=== PATIENT | female | born 1930 | race Caucasian/White ===

== ENCOUNTER 2017-06-02 22:11 | Inpatient (IN) | payer OTHER, BC ==
[~2017-06-02] VITALS: Ht 167.6 cm; Wt 74.1 kg
[~2017-06-02 22:11] MED LIST: ADVIL200 M1 PO; ALEVE220 M1 PO; ALEVE220 M2 PO; AMIODARONE HCL200 MG PO; ASPERCREME L177.4 ML TP; ASPIR 8181 M1 PO; Aspirin PO; CALCIUM + D TA1 EACH PO; CALCIUM 500 +1 EAC2 PO; CALCIUM 600 +1 EAC6 PO; CORDARONE200 MG PO; Cordarone, Pacerone PO; DICYCLOMINE HCL20 MG PO; ECOTRIN325 MG PO; ELIQUIS2.5 MG PO; FISH OIL CONC1 EACH PO; GLUCOSAMINE H1500 MG PO; IBUPROFEN PM C1 EACH PO; IRON325 M1 PO; JOINT FLEX PO; LIDODERM 5% P1 PATCH TD; LISINOPRIL10 MG PO; MACUVITE EYE C1 EACH PO; NORCO 5/3251 TABLET PO; OMEPRAZOLE40 M1 PO; PENNSAID112 GM TP; PRESERVISION T1 EACH PO; PROLIA60 MG/1 ML SC; SENNA8.6 MG PO; SPIRIVA1 INHALATI IH; TAZTIA XT180 M1 PO; TRAMADOL HCL50 MG PO; TYLENOL EXTRA500 MG PO; TYLENOL PM1 CAPLET PO; VANCOCIN HCL125 MG PO; VITAMIN D31000 UNIT PO
[2017-06-03 12:38] VITALS: BP 191/89
[2017-06-03 12:42] LABS: INTER. NORMALIZED RATIO 1.1
[2017-06-03 21:51] VITALS: BP 18/79
[2017-06-03 23:38] VITALS: BP 146/69
[2017-06-04 03:45] VITALS: BP 161/72
[2017-06-04 05:19] LABS: HEMATOCRIT 40.7 % (36.0-46.0); MCV 94.9 FL (83-99)
[2017-06-04 05:39] LABS: ANION GAP 11 MEQ/L (2-14); CHLORIDE 103 MEQ/L (99-109); GFR ESTIMATE (CALCULATED) > 59 mL/min/; GLUCOSE 174 mg/dL (70-99); POTASSIUM 4.5 MEQ/L (3.7-5.4); SAMPLE HEMOLYSIS CHECK 0; SAMPLE ICTERIC CHECK 0; SAMPLE LIPEMIA CHECK 0; SODIUM 139 MEQ/L (136-147); UREA NITROGEN (BUN) 16 mg/dL (9-23)
[2017-06-04 08:02] VITALS: BP 162/74
[2017-06-04 11:54] VITALS: BP 138/65
[2017-06-04 15:43] VITALS: BP 146/65
[2017-06-04 23:19] VITALS: BP 142/76
[2017-06-05 06:13] LABS: HEMATOCRIT 36.8 % (36.0-46.0); MCV 97.9 FL (83-99)
[2017-06-05 08:17] VITALS: BP 157/69
[2017-06-05] MEDS ORDERED: ELIQUIS2.5 MG PO (08:59)
[2017-06-05] MEDS ORDERED: SENNA PLUS TAB1 EACH PO (08:59)
[2017-06-05] MEDS ORDERED: HYDROCODON-ACE1 EAC7 PO (08:59)
[2017-06-06] MEDS ORDERED: COLACE100 MG PO (15:57)
== END 2017-06-05 14:52 | disposition home or self-care (01) | DRG 470 ==
LOC: ENRESERV 22:11 → 3EAST 06-03 11:37 → 2SOUTH 06-03 11:37 → ENRESERV 06-03 17:19 → 3EAST 06-03 20:14
PROVIDERS: Orthopaedic Surgery
PROC: 0SRC0J9 Replacement of Right Knee Joint with Synthetic Substitute, Cemented, Open Approach (ICD-10-PCS; principal; 2017-06-03)
DX: M17.11 Unilateral primary osteoarthritis, right knee (principal); E87.6 Hypokalemia; I25.10 Atherosclerotic heart disease of native coronary artery without angina pectoris; I10 Essential (primary) hypertension; I48.0 Paroxysmal atrial fibrillation; M81.0 Age-related osteoporosis without current pathological fracture; Z79.01 Long term (current) use of anticoagulants; I25.2 Old myocardial infarction; Z85.3 Personal history of malignant neoplasm of breast; Z88.1 Allergy status to other antibiotic agents; Z85.43 Personal history of malignant neoplasm of ovary; Z88.0 Allergy status to penicillin; Z90.49 Acquired absence of other specified parts of digestive tract; Z90.710 Acquired absence of both cervix and uterus; Z90.11 Acquired absence of right breast and nipple; Z82.49 Family history of ischemic heart disease and other diseases of the circulatory system; Z80.9 Family history of malignant neoplasm, unspecified
CPT/HCPCS: 80048; 85014; 85018; 85610; 85730; 97530 GO; C1713; J0131; J0360; J0690; J1100; J1170; J1885; J2250; J2405; J2795; J3010; J7050

== ENCOUNTER 2017-06-06 13:59 | Observation (INO) | payer OTHER, BC ==
[~2017-06-06] VITALS: Ht 167.6 cm; Wt 71.8 kg
[~2017-06-06 13:59] MED LIST changes: +HYDROCODON-ACE1 EAC7 PO; +SENNA PLUS TAB1 EACH PO
[2017-06-06 15:12] LABS: EOSINOPHIL (%) 0.2 % (0-5); HEMATOCRIT 33.2 % (36.0-46.0); IMMATURE GRANULOCYTE (%) 0.4 % (0.0-0.7); IMMATURE GRANULOCYTE COUNT 0.1 K/uL; INSTRUMENT ABS NEUTROPHIL CT 10.3 K/uL; LYMPHOCYTE COUNT 0.4 K/uL (1.0-2.8); MCHC 31.9 G/DL (30.0-36.0); MCV 97.1 FL (83-99); MEAN PLAT.VOLUME 9.7 uM^3 (9.5-12.4); MONOCYTE (%) 13.1 % (3-12); MONOCYTE COUNT 1.6 K/uL (0-0.8); NEUTROPHIL (%) 83.1 % (45-76); NEUTROPHIL COUNT 10.3 K/uL (1.8-6.4); PLATELET COUNT 199 K/uL (156-360); RBC DIS.WIDTH-CV 13.4 % (11.8-14.6); RBC DIS.WIDTH-SD 48.2 % (39-53); WHITE BLOOD COUNT 12.3 K/uL (4.1-10.2)
[2017-06-06 15:15] LABS: RED BLOOD COUNT 3.42 M/uL (3.80-5.20)
[2017-06-06 15:21] LABS: CHLORIDE 110 mEq/L (99-109); POTASSIUM 3.6 mEq/L (3.7-5.4); SODIUM 142 mEq/L (136-147)
[2017-06-06 15:23] LABS: INTER. NORMALIZED RATIO 1.3; PROTHROMBIN TIME 14.7 SEC (10.2-12.9)
[2017-06-06 15:25] LABS: ANION GAP 13 MEQ/L (2-14)
[2017-06-06 15:26] LABS: GLUCOSE 116 mg/dL (70-99); PTT 24.5 SEC (25-37)
[2017-06-06 15:27] LABS: GFR ESTIMATE (CALCULATED) > 59 mL/min/
[2017-06-06 15:28] LABS: UREA NITROGEN (BUN) 21 mg/dL (9-23)
[2017-06-06 15:35] LABS: TROP-I INTERPRETATION NEGATIVE; TROPONIN-I 0.01 ng/mL (0.0-0.30)
[2017-06-06] MEDS ORDERED: COLACE100 MG PO (15:57)
[2017-06-06 17:19] VITALS: BP 186/80
[2017-06-06 20:50] LABS: EOSINOPHIL (%) 0.2 % (0-5); HEMATOCRIT 32.2 % (36.0-46.0); IMMATURE GRANULOCYTE (%) 0.3 % (0.0-0.7); INSTRUMENT ABS NEUTROPHIL CT 9.7 K/uL; LYMPHOCYTE COUNT 0.5 K/uL (1.0-2.8); MCH 32.8 PG (29.0-34.0); MCHC 33.9 G/DL (30.0-36.0); MEAN PLAT.VOLUME 10.1 uM^3 (9.5-12.4); MONOCYTE (%) 12.9 % (3-12); MONOCYTE COUNT 1.5 K/uL (0-0.8); NEUTROPHIL (%) 82.3 % (45-76); NEUTROPHIL COUNT 9.7 K/uL (1.8-6.4); PLATELET COUNT 206 K/uL (156-360); RBC DIS.WIDTH-CV 13.7 % (11.8-14.6); RBC DIS.WIDTH-SD 48.8 % (39-53); RED BLOOD COUNT 3.32 M/uL (3.80-5.20); WHITE BLOOD COUNT 11.8 K/uL (4.1-10.2)
[2017-06-06 20:56] LABS: ERTH.SED.RATE ND MM/HR (0-30)
[2017-06-06 21:00] VITALS: BP 178/76
[2017-06-06 21:41] LABS: TROP-I INTERPRETATION NEGATIVE; TROPONIN-I 0.03 ng/mL (0.0-0.30)
[2017-06-06 23:15] VITALS: BP 175/75
[2017-06-07 03:29] VITALS: BP 133/78
[2017-06-07 06:07] LABS: HEMATOCRIT 29.5 % (36.0-46.0); MCH 31.8 PG (29.0-34.0); MCHC 32.5 G/DL (30.0-36.0); MCV 97.7 FL (83-99); PLATELET COUNT 191 K/uL (156-360); RBC DIS.WIDTH-CV 13.5 % (11.8-14.6); RBC DIS.WIDTH-SD 49.1 % (39-53); RED BLOOD COUNT 3.02 M/uL (3.80-5.20); WHITE BLOOD COUNT 8.9 K/uL (4.1-10.2)
[2017-06-07 06:29] LABS: ANION GAP 6 MEQ/L (2-14); CHLORIDE 112 MEQ/L (99-109); GFR ESTIMATE (CALCULATED) > 59 mL/min/; POTASSIUM 4.1 MEQ/L (3.7-5.4); SAMPLE HEMOLYSIS CHECK 0; SAMPLE ICTERIC CHECK 0; SAMPLE LIPEMIA CHECK 0; SODIUM 142 MEQ/L (136-147); UREA NITROGEN (BUN) 21 mg/dL (9-23)
[2017-06-07 06:30] LABS: GLUCOSE 86 mg/dL (70-99); TROP-I INTERPRETATION NEGATIVE; TROPONIN-I 0.03 ng/mL (0.0-0.30)
[2017-06-07 08:30] LABS: POINT-OF-CARE METER ID UU13113831
[2017-06-07 09:20] VITALS: BP 159/70
[2017-06-07 11:26] VITALS: BP 125/58
== END 2017-06-07 15:35 | disposition home or self-care (01) ==
LOC: EME 13:59 → 5WEST 15:58 → EDOF 15:58 → ENRESERV 16:00 → 5WEST 17:04
PROVIDERS: Emergency Medicine; Internal Medicine; Physician Assistant Medical
DX: R55 Syncope and collapse (principal); Z96.651 Presence of right artificial knee joint; I48.0 Paroxysmal atrial fibrillation; I25.2 Old myocardial infarction; I10 Essential (primary) hypertension; Z85.43 Personal history of malignant neoplasm of ovary; Z85.3 Personal history of malignant neoplasm of breast; Z92.21 Personal history of antineoplastic chemotherapy; Z79.01 Long term (current) use of anticoagulants; D72.829 Elevated white blood cell count, unspecified; Z88.0 Allergy status to penicillin; Z88.1 Allergy status to other antibiotic agents
CPT/HCPCS: 80048; 82948; 84484; 85025; 85025 91; 85027; 85610; 85651; 85730; 93005; 95819; 99281; 99285; G0378; J2405